=== PATIENT | male | born 1935 | race Caucasian/White ===

== ENCOUNTER 2016-05-07 21:56 | Emergency (ER) | payer OTHER, MEDICARE ==
[~2016-05-07] VITALS: Ht 175.3 cm; Wt 95.5 kg
[~2016-05-07 21:56] MED LIST: CLOP75 PO; FURO20TA PO; K-TA10TA5 PO; LEVEMIR SQ; LISI5 PO; MAGN1SOL2 PO; METO100T PO; NITR0.4S SL; OMEP20TA PO; PRAD75CA PO; TAMS0.4C67 PO
[2016-05-07 22:05] VITALS: BP 130/80; PULSE 82; RESP 18; TEMP 98.4; O2SAT 95
--- NOTE | 2016-05-07 22:08 | PD ---
HPI Chief Complaint: Complaint Time Seen by Provider: 22:05 Travel History International Travel<30 days: Yes Contact w/Intl Traveler<30days: Yes Traveled to known affect area: Yes History of Present Illness HPI 80-year-old male is complaining of inability to urinate. He has a history of prostate trouble and has trouble getting his stream started. He feels now like he says a full bladder and is unable to. He has a history of congestive heart failure which is quite severe. He is on home hospice. 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 PFSH Past Medical History Hx Anticoagulant Therapy: Yes Anemia: Yes Arthritis: Yes Asthma: No Autoimmune Disease: No Blood Disorders: No Anxiety: Yes Depression: Yes Heart Rhythm Problems: Yes Cancer: No Cardiac Catheterization: Yes Cardiovascular Problems: Yes High Cholesterol: Yes Chemotherapy: No Chest Pain: Yes Congestive Heart Failure: Yes COPD: Yes Cerebrovascular Accident: No Coronary Artery Disease: Yes Diabetes: Yes (insulin) Diminished Hearing: No Endocrine: Yes GERD: Yes (Rich's esophagus) Glaucoma: No Genitourinary: Yes (BPH) Headaches: No Hepatitis: No Hiatal Hernia: Yes Hypertension: Yes Immune Disorder: No Inguinal Hernia: Yes Implanted Vascular Access Dvce: Yes Kidney Stones: No Musculoskeletal: Yes Neurologic: Yes Psychiatric: Yes Reproductive: No Respiratory: Yes Immunizations Current: No Migraines: No Myocardial Infarction: Yes Radiation Therapy: No Renal Failure: No Seizures: No Sickle Cell Disease: No Sleep Apnea: No Thyroid Disease: No Ulcer: No PNEUMOCCOCAL Vaccine (Year): 2 Past Surgical History Abdominal Surgery: Yes (UMBILICAL HERNIA AND BILAT ING HERNIA REPAIR) AICD: No Arteriovenous Shunt: No Body Medical Devices: Stents x 1 wires from bypass Cardiac Surgery: Yes (cabg 4 vessel) Cholecystectomy: Yes Coronary Artery Bypass Graft: Yes Coronary Stent: Yes (X 1) Genitourinary Surgery: Yes (TURP x2 colesectomy) Insulin Pump: No Joint Replacement: No Neurologic Surgery: No Pacemaker: No Other Surgery: Yes (cabg, turp, bilat inguinal hernia, gallbladder, abd hernia failed ) Social History Alcohol Use: No Tobacco Use: No Substance Use: No Allergies-Medications (Allergen,Severity, Reaction): Coded Allergies: Betadine (Verified Allergy, Severe, RASH, BLISTERS, 02/13/16) Demerol (Verified Allergy, Severe, BLADDER RETENTION, 02/13/16) Lipitor (Verified Allergy, Severe, "LOSS OF MUSCLE CONTROL", 02/13/16) PT ALLERGIC TO STATINS - MUSCLE ACHES TO ALL STATINS Nonsteroidal Anti-Inflammatory Agts (Verified Allergy, Severe, "BURNED HOLE IN ESOPHAGUS", 02/13/16) PATIENT STATES " I CAN NOT TAKE PILLS, BUT I CAN HAVE INJECTIONS" Penicillin (Verified Allergy, Severe, ANAPHYLAXIS, 02/13/16) Pravastatin (Verified Allergy, Severe, 02/13/16) ALL STATINS Tetanus Immune Globulin (Verified Allergy, Severe, "ANAPHYLAXIS", 02/13/16 ) Tetanus Toxoid (Verified Allergy, Severe, Anaphylaxis, 02/13/16) Vancomycin (Verified Allergy, Severe, Anaphylaxis, 02/13/16) Reported Meds & Prescriptions Reported Meds & Active Scripts Active Flomax (Tamsulosin HCl) 0.4 Mg Cap 0.4 Mg PO DAILY Magnesium Citrate 300 Ml Soln 300 Ml PO DIRECTED Pradaxa 75 Mg Cap (Dabigatran) 75 Mg Cap 75 Mg PO BID 30 Days K-Tabs (Potassium Chloride) 10 Meq Tab 10 Meq PO BID 30 Days Furosemide 20 Mg Tab 40 Mg PO BID 30 Days Prinivil 5 mg (Lisinopril) 5 Mg Tab 5 Mg PO DAILY 30 Days Plavix (Clopidogrel Bisulfate) 75 Mg Tab 75 Mg PO DAILY 30 Days Reported Levemir Insulin (Insulin Detemir) 100 Units/Ml Inj 10 Units SQ DAILY Metoprolol Tartrate 100 mg (Metoprolol Tartrate) 100 Mg Tab 100 Mg PO BID Nitroquick (Nitroglycerin) 0.4 Mg Sub 0.4 Mg SL DIRECTED PRN Omeprazole 20 mg (Omeprazole) 20 Mg Tab 20 Mg PO DAILY Review of Systems General / Constitutional: No: Fever, Chills Eyes: No: Diploplia, Blurred Vision HENT: No: Headaches Cardiovascular: No: Chest Pain or Discomfort Respiratory: Positive: Shortness of Breath Gastrointestinal: No: Nausea, Vomiting Genitourinary: Positive: Decreased Urinary Output Musculoskeletal: No: Myalgias, Arthralgias Skin: Positive Rash Hematologic/Lymphatic: No: Easy Bruising Physical Exam Narrative GENERAL: Well-developed male SKIN: Warm and dry. There is erythema and superficial ulcerations on both lower extremities, left worse than the right HEAD: Atraumatic. Normocephalic. EYES: Pupils equal and round. No scleral icterus. No injection or drainage. ENT: No nasal bleeding or discharge. Mucous membranes pink and moist. NECK: Trachea midline. No JVD. CARDIOVASCULAR: Regular rate and rhythm. No murmur appreciated. RESPIRATORY: No accessory muscle use. Clear to auscultation. Breath sounds equal bilaterally. GASTROINTESTINAL: Abdomen soft, non-tender, nondistended. Hepatic and splenic margins not palpable. There is a large ventral hernia MUSCULOSKELETAL: No obvious deformities. No clubbing. No cyanosis. Bilateral pedal edema NEUROLOGICAL: Awake and alert. No obvious cranial nerve deficits. Motor grossly within normal limits. Normal speech. PSYCHIATRIC: Appropriate mood and affect; insight and judgment normal. Data Data Last Documented VS Vital Signs Date Time Temp Pulse Resp B/P Pulse Ox O2 Delivery O2 Flow Rate FiO2 05/07/16 22:05 98.4 82 18 130/80 95 Orders Complete Blood Count With Diff (05/07/16 22:05) Basic Metabolic Panel (Bmp) (05/07/16 22:05) B-Type Natriuretic Peptide (05/07/16 22:05) Urinalysis - C+S If Indicated (05/07/16 22:05) Labs Laboratory Tests Test 05/07/16 05/07/16 22:38 22:50 White Blood Count 7.9 TH/MM3 Red Blood Count 3.85 MIL/MM3 Hemoglobin 12.2 GM/DL Hematocrit 37.2 % Mean Corpuscular Volume 96.7 FL Mean Corpuscular Hemoglobin 31.7 PG Mean Corpuscular Hemoglobin 32.8 % Concent Red Cell Distribution Width 16.0 % Platelet Count 186 TH/MM3 Mean Platelet Volume 8.7 FL Neutrophils (%) (Auto) 69.8 % Lymphocytes (%) (Auto) 17.9 % Monocytes (%) (Auto) 7.3 % Eosinophils (%) (Auto) 1.1 % Basophils (%) (Auto) 3.9 % Neutrophils # (Auto) 5.6 TH/MM3 Lymphocytes # (Auto) 1.4 TH/MM3 Monocytes # (Auto) 0.6 TH/MM3 Eosinophils # (Auto) 0.1 TH/MM3 Basophils # (Auto) 0.3 TH/MM3 CBC Comment DIFF FINAL Differential Comment Sodium Level 137 MEQ/L Potassium Level 4.4 MEQ/L Chloride Level 99 MEQ/L Carbon Dioxide Level 27.8 MEQ/L Anion Gap 10 MEQ/L Blood Urea Nitrogen 30 MG/DL Creatinine 1.90 MG/DL Estimat Glomerular Filtration 34 ML/MIN Rate Random Glucose 142 MG/DL Calcium Level 7.8 MG/DL B-Type Natriuretic Peptide 2942 PG/ML Urine Color YELLOW Urine Turbidity SLIGHT Urine pH 5.5 Urine Specific [place] 1.011 Urine Protein 100 mg/dL Urine Glucose (UA) NEG mg/dL Urine Ketones NEG mg/dL Urine Occult Blood TRACE Urine Nitrite NEG Urine Bilirubin NEG Urine Leukocyte Esterase NEG Urine RBC 0-3 /hpf Urine WBC 0-2 /hpf Urine Squamous Epithelial 6-8 /hpf Cells Urine Amorphous Sediment MOD Urine Bacteria NONE /hpf Microscopic Urinalysis Comment CULT NOT INDICATED MDM Medical Decision Making Medical Screen Exam Complete: Yes Emergency Medical Condition: Yes Medical Record Reviewed: Yes Differential Diagnosis Differential includes CHF, dehydration, cellulitis Narrative Course Mathew catheter was inserted. The patient is not in retention. He will be treated for cellulitis of the left leg with Keflex. His BNP is quite elevated. He is not in respiratory distress and I'm reluctant to increase his Lasix as his creatinine is 1.9 which is a bit higher than Diagnosis Primary Impression: Cellulitis of left anterior lower leg Additional Impression: CHF (congestive heart failure) Qualified Code: I50.9 - Congestive heart failure, unspecified congestive heart failure chronicity, unspecified congestive heart failure type Disposition: 01 DISCHARGE HOME Condition: Stable Anthony Vo MD May 07, 2016 22:08
[2016-05-07 22:42] LABS: AUTOMATED NEUTROPHIL # 5.6 TH/MM3 (1.8-7.7); BASOPHIL # 0.3 TH/MM3 (0-0.2); BASOPHIL % 3.9 % (0.0-2.0); EOSINOPHIL # 0.1 TH/MM3 (0-0.4); EOSINOPHIL % 1.1 % (0.0-4.0); HEMATOCRIT 37.2 % (39.0-51.0); HEMO FLAGS DIFF FINAL; LYMPH % 17.9 % (9.0-44.0); LYMPHOCYTE # 1.4 TH/MM3 (1.0-4.8); MEAN CELL VOLUME 96.7 FL (80.0-100.0); MEAN CORPUSCULAR HEMOGLOBIN 31.7 PG (27.0-34.0); MEAN CORPUSCULAR HGB CONC 32.8 % (32.0-36.0); MONO % 7.3 % (0.0-8.0); NEUT % 69.8 % (16.0-70.0); PLATELET COUNT 186 TH/MM3 (150-450); RED BLOOD COUNT 3.85 MIL/MM3 (4.50-5.90); WHITE BLOOD COUNT 7.9 TH/MM3 (4.0-11.0)
[2016-05-07 22:50] LABS: POTASSIUM 4.4 MEQ/L (3.5-5.1)
[2016-05-07 22:53] LABS: BICARBONATE 27.8 MEQ/L (21.0-32.0)
[2016-05-07 23:02] LABS: BLOOD, URINE TRACE (NEG); GLUCOSE,URINE NEG (NEG); KETONE, URINE NEG (NEG); NITRITE,URINE NEG (NEG); PH, URINE 5.5 (5.0-8.5)
[2016-05-07 23:12] LABS: URINE COLOR YELLOW (YELLW/STRAW)
[2016-05-07 23:13] LABS: COMMENT (UR) CULT NOT INDICATED; CULTURE IF INDICATED CULT NOT INDICATED; RBC, URINE 0-3 /hpf (0-3); WBC, URINE 0-2 /hpf (0-5)
[2016-05-07] MEDS ORDERED: CEPH-460 PO (23:19)
[2016-05-07] MEDS ORDERED: CEPHALEXIN MONOHYDRATE 250 MG CAP PO ONE (23:30)
[2016-05-07] MEDS ORDERED: CEPHALEXIN MONOHYDRATE 500 MG CAP PO ONE (23:45)
[2016-05-08 00:41] VITALS: BP 138/82
[2016-05-08] MEDS ORDERED: TAMS5CAP PO (01:21)
[2016-05-08] MEDS ORDERED: TRAM50TA PO (01:21)
[2016-05-08] MEDS ORDERED: MIRA33504 PO (01:21)
[2016-05-08] MEDS ORDERED: OMEP10CA PO (01:21)
[2016-05-08] MEDS ORDERED: PRAD75CA PO (01:21)
[2016-05-08] MEDS ORDERED: NITR1SUB3 SL (01:21)
[2016-05-08] MEDS ORDERED: LISI-519 PO (01:21)
[2016-05-08] MEDS ORDERED: LEVEMIR SQ (01:21)
[2016-05-08] MEDS ORDERED: FURO20TA PO (01:21)
[2016-05-08] MEDS ORDERED: METO100T PO (01:21)
[2016-05-08] MEDS ORDERED: MAGN1SOL2 PO (01:21)
[2016-05-08] MEDS ORDERED: DIAZ5TAB PO (01:21)
== END 2016-05-08 00:41 | disposition home or self-care (01) ==
LOC: PHED 21:56
DX: L03.116 Cellulitis of left lower limb (principal); I50.9 Heart failure, unspecified; E78.00 Pure hypercholesterolemia, unspecified; E11.9 Type 2 diabetes mellitus without complications; I10 Essential (primary) hypertension; N40.0 Benign prostatic hyperplasia without lower urinary tract symptoms; I25.2 Old myocardial infarction; Z95.1 Presence of aortocoronary bypass graft; Z79.4 Long term (current) use of insulin
CPT/HCPCS: 51702; 80048; 81001; 83880; 85025